=== PATIENT | male | born 1995 | race Caucasian/White ===

== ENCOUNTER 2016-09-11 20:17 | Emergency (ER) | payer MEDICAID, OTHER, SELFPAY ==
[2016-09-11] MEDS ORDERED: IBUPROFEN 600 MG TAB As Ordered ONE (21:46)
--- NOTE | 2016-09-11 23:44 | EDDOCDS ---
Nurse's Notes [facility] Name: Walter Hampton Age: 21 yrs Sex: Male : 1995 Arrival Date: 09/11/2016 Time: 20:17 Bed PR Private MD: Monty Leo C Diagnosis: Internal derangement of knee-LEFT Presentation: 09/11 20:27 Presenting complaint: Patient states: left knee pain after bad landing during [facility] basketball, feels like acl and meniscus tear on right side last year. Adult Sepsis Screening: The patient does not have new or worsening altered mentation. Patient's respiratory rate is less than 22. Systolic blood pressure is greater than 100. Patient has a qSOFA score of 0- Negative Sepsis Screen. Suicide/Homicide risk assessment- the patient denies having any suicidal and/or homicidal ideations and does not present with any other emotional, behavioral or mental health complaints. Status: The patient is a dependent. Transition of care: patient was not received from another setting of care. 20:27 Acuity: SUMIT Level 4 [facility] 20:27 Method Of Arrival: Walkin/Carried/Asstd [facility] Triage Assessment: 20:30 General: Appears in no apparent distress, comfortable, Behavior is appropriate for age, [facility] cooperative. Pain: Location: left knee Pain currently is 4 out of 10 on a pain scale. HIV screening NA for this visit Offered previously. Respiratory: Airway is patent Respiratory effort is even, unlabored, Respiratory pattern is regular, symmetrical. Derm: Skin is pink, warm & dry. Musculoskeletal: Range of motion limited in left knee. Historical: - Allergies: no known allergies; - Home Meds: 1. none - PMHx: none; - PSHx: knee, right acl repair; - Social history: Smoking status: Patient states was never smoker of tobacco. No barriers to communication noted. - Family history: Not pertinent. - : The pt / caregiver states he / she is not on anticoagulants. Home medication list is obtained from the patient. - Exposure Risk Screening:: None identified. Screenin:12 Screening information is obtained from the patient. Fall risk: No risks identified. cz Assistance ADL's: requires no assistance with activities of daily living. Abuse/DV Screen: The patient / caregiver reports he/she is: not in a situation that causes fear, pain or injury. Nutritional screening: No deficits noted. Advance Directives: Currently, there is no health care proxy. There is no active DNR order. There is no living will. There is no Power of Finance Clerk. Advance directive information has not previously been placed in an [facility] medical record. Further advance directive information is declined. home support is adequate. Assessment: 21:12 General: alert male with left lateral knee pain caused by playing basketball. Vital Signs: 20:19 BP 157 / 80; Pulse 113; Resp 20; Temp 99.6(O); Pulse Ox 96% on R/A; Weight 106.14 kg elp (R); Height 5 ft. 8 in. (172.72 cm) (R); Pain 4/10; 22:33 BP 142 / 68 RA Sitting (auto/reg); Pulse 99 MON; Resp 22 S; Temp 98.2(O); Pulse Ox 99% cln on R/A; Pain 4/10; 20:19 Body Mass Index 35.58 (106.14 kg, 172.72 cm) [facility] Vitals: 20:19 Log In Time: September 11, 2016 at 20:17. [facility] ED Course: 20:19 Patient visited by Josette Cabrera PCA. elp 20:19 Monty Leo is Private Physician. elp 20:19 Patient visited by Josette Cabrera PCA. elp 20:19 Patient moved to Waiting elp 20:20 Patient moved to Pre RCE elp 20:29 Triage Initiated [facility] 21:11 Patient moved to Triage 1 cz 21:12 The patient / caregiver is instructed regarding the plan of care and ED course. cz 21:33 [facility] ck7 21:33 Lei Ramos DO is Attending Physician. ck7 21:34 Patient visited by Roney Cartagena RPA-C. ck7 21:48 Patient moved to TR1 cz 21:57 [facility] Payment Agreement was scanned into [employer] and attached to record. ks16 22:24 Patient visited by Roney Cartagena RPA-C. ck7 22:25 Patient name changed from Walter\S\Jr\S\Memo\S\ to Walter\S\M\S\Memo. EDMS 22:29 Patient moved to PR2 / 26 cln 22:33 Patient visited by Geovanna Sow PCA. cln 23:15 Patient visited by Roney Cartagena RPA-C. ck7 23:36 [facility] is Referral Physician. ck7 23:43 No IV's were initiated during this patient's visit. No procedures done that require cz assistance. Crutch training done. Knee immobilizer applied on left knee. Patient with positive distal sensation and brisk distal capillary refill after application. Administered Medications: 21:48 Drug: Ibuprofen 600 mg [ibuprofen 600 mg tablet (1 tabs)] Route: PO; cz Order Results: There are currently no results for this order. Outcome: 23:36 Discharge ordered by Provider. ck7 23:42 Discharge Assessment: Patient awake, alert and oriented x 3. No cognitive and/or cz functional deficits noted. Patient verbalized understanding of disposition instructions. patient administered narcotics - no. The following High Risk Discharge criteria are identified: None. Discharged to home ambulatory, with crutches, with family. Condition: stable. Discharge instructions given to patient, Instructed on discharge instructions, follow up and referral plans. medication usage, Demonstrated understanding of instructions, crutch walking, medications, Pt was receptive of discharge instructions/ teaching. Prescriptions given X 2. No special radiology studies were completed. Property :Personal belongings accompany Pt. 23:43 Patient left the ED. cz Signatures: Dispatcher [employer] EDNV Aaron Gonzalez RN RN cz Hafner, Jane, RN RN [facility] Roney Cartagena RPA-C RPA-Cck7 Josette Cabrera, HYDRAULIC DREDGE OPERATOR HYDRAULIC DREDGE OPERATOR zahrap Divine Castano, Reg Reg ks16 Geovanna Sow, HYDRAULIC DREDGE OPERATOR HYDRAULIC DREDGE OPERATOR cln MTDD
--- NOTE | 2016-09-11 23:44 | EDDOCDS ---
Physician Documentation [facility] Name: Walter Hampton Age: 21 yrs Sex: Male : 1995 Arrival Date: 09/11/2016 Time: 20:17 Bed PR Private MD: Monty Leo C Disposition: 09/11/16 23:36 Discharged to Home/Self Care. Impression: Internal derangement of knee - LEFT. - Condition is Stable. - Discharge Instructions: Knee Pain. - Prescriptions for Ibuprofen 600 mg Oral Tablet - take 1 tablet by ORAL route every 6 hours As needed take with food; 30 tablet. - Medication Reconciliation, Local Pharmacy Hours form. - Follow up: [facility]; When: 2 - 3 days; Reason: Recheck today's complaints, Continuance of care. - Problem is new. - Symptoms have improved. - Notes: USE IMMOBILIZER, CRUTCHES\E\, MOTRIN AND ICE, FOLLOW UP WITH [facility] Historical: - Allergies: no known allergies; - Home Meds: 1. none - PMHx: none; - PSHx: knee, right acl repair; - Social history: Smoking status: Patient states was never smoker of tobacco. No barriers to communication noted. - Family history: Not pertinent. - : The pt / caregiver states he / she is not on anticoagulants. Home medication list is obtained from the patient. - Exposure Risk Screening:: None identified. Vital Signs: 09/11 20:19 BP 157 / 80; Pulse 113; Resp 20; Temp 99.6(O); Pulse Ox 96% on R/A; Weight 106.14 kg / elp 234 lbs (R); Height 5 ft. 8 in. (172.72 cm) (R); Pain 4/10; 22:33 BP 142 / 68 RA Sitting (auto/reg); Pulse 99 MON; Resp 22 S; Temp 98.2(O); Pulse Ox 99% cln on R/A; Pain 4/10; 20:19 Body Mass Index 35.58 (106.14 kg, 172.72 cm) elp Procedures: 22:29 Fracture care/splinting: Splint applied to left leg using knee immobilizer, applied by ck7 nurse. Examined by me, post splint application: neurovascular intact, 2+ distal pulses palpable, brisk capillary refill noted, Patient tolerated well. MDM: 21:45 Ibuprofen 600 mg PO once ordered. ck7 21:46 Knee, Complete Ordered. EDMS 21:57 Financial registration complete. ks16 21:57 [facility] Payment Agreement was scanned into [employer] and attached to record. ks16 22:29 Knee Immobilizer ordered. ck7 22:29 Crutches ordered. ck7 Administered Medications: 21:48 Drug: Ibuprofen 600 mg [ibuprofen 600 mg tablet (1 tabs)] Route: PO; cz Signatures: Dispatcher [employer] EDMS Aaron Gonzalez, ASHELY RN Queenie Pritchett RN RN bonnie Roney Cartagena, RPA-C RPA-Cck7 Divine Castano, Reg Reg ks16 The chart was reviewed and I authenticate all verbal orders and agree with the evaluation and treatment provided.Attachments: 21:57 [facility] Payment Agreement ks16 MTDD
--- NOTE | 2016-09-12 08:30 | REP ---
Left knee series: Five views. History: Deformity and swelling. Comparison left knee radiographs are from August 06, 2014. Findings: Five views of the left knee demonstrate normal joint spaces. There is no evidence of fracture, subluxation or joint effusion. Alignment is normal. Impression: Negative left knee series. Signed by Olegario Mckeon MD 09/12/2016 09:50 A
--- NOTE | 2016-09-14 00:44 | EDDOCDS ---
Physician Documentation [facility] Name: Walter Hampton Age: 21 yrs Sex: Male : 1995 Arrival Date: 09/11/2016 Time: 20:17 Bed PR Private MD: Monty Leo C Disposition: 09/11/16 23:36 Discharged to Home/Self Care. Impression: Internal derangement of knee - LEFT. - Condition is Stable. - Discharge Instructions: Knee Pain. - Prescriptions for Ibuprofen 600 mg Oral Tablet - take 1 tablet by ORAL route every 6 hours As needed take with food; 30 tablet. - Medication Reconciliation, Local Pharmacy Hours form. - Follow up: [facility]; When: 2 - 3 days; Reason: Recheck today's complaints, Continuance of care. - Problem is new. - Symptoms have improved. - Notes: USE IMMOBILIZER, CRUTCHES\E\, MOTRIN AND ICE, FOLLOW UP WITH [facility] Historical: - Allergies: no known allergies; - Home Meds: 1. none - PMHx: none; - PSHx: knee, right acl repair; - Social history: Smoking status: Patient states was never smoker of tobacco. No barriers to communication noted. - Family history: Not pertinent. - : The pt / caregiver states he / she is not on anticoagulants. Home medication list is obtained from the patient. - Exposure Risk Screening:: None identified. Vital Signs: 09/11 20:19 BP 157 / 80; Pulse 113; Resp 20; Temp 99.6(O); Pulse Ox 96% on R/A; Weight 106.14 kg / elp 234 lbs (R); Height 5 ft. 8 in. (172.72 cm) (R); Pain 4/10; 22:33 BP 142 / 68 RA Sitting (auto/reg); Pulse 99 MON; Resp 22 S; Temp 98.2(O); Pulse Ox 99% cln on R/A; Pain 4/10; 20:19 Body Mass Index 35.58 (106.14 kg, 172.72 cm) elp Procedures: 22:29 Fracture care/splinting: Splint applied to left leg using knee immobilizer, applied by ck7 nurse. Examined by me, post splint application: neurovascular intact, 2+ distal pulses palpable, brisk capillary refill noted, Patient tolerated well. MDM: 21:45 Ibuprofen 600 mg PO once ordered. ck7 21:46 Knee, Complete Ordered. EDMS 21:57 Financial registration complete. ks16 :57 [facility] Payment Agreement was scanned into [employer] and attached to record. ks16 22:29 Knee Immobilizer ordered. ck7 22:29 Crutches ordered. ck7 09/12 09:31 T-Sheet-- Draft Copy was scanned into [employer] and attached to record. gb Administered Medications: 09/11 21:48 Drug: Ibuprofen 600 mg [ibuprofen 600 mg tablet (1 tabs)] Route: PO; cz Signatures: Dispatcher [employer] EDMS Aaron Gonzalez RN RN cz Barnhardt, Gloria, Reg Reg gb Queenie Xavier RN RN Roney Voss, RPA-C RPA-Cck7 Divine Castano, Reg Reg ks16 The chart was reviewed and I authenticate all verbal orders and agree with the evaluation and treatment provided.Attachments: :57 [facility] Payment Agreement 09/12 09:31 T-Sheet-- Draft Copy gb Chart Complete MTDD
--- NOTE | 2016-09-14 00:44 | EDDOCDS ---
Nurse's Notes [facility] Name: Walter Hampton Age: 21 yrs Sex: Male : 1995 Arrival Date: 09/11/2016 Time: 20:17 Bed PR Private MD: Monty Leo C Diagnosis: Internal derangement of knee-LEFT Presentation: 09/11 20:27 Presenting complaint: Patient states: left knee pain after bad landing during [facility] basketball, feels like acl and meniscus tear on right side last year. Adult Sepsis Screening: The patient does not have new or worsening altered mentation. Patient's respiratory rate is less than 22. Systolic blood pressure is greater than 100. Patient has a qSOFA score of 0- Negative Sepsis Screen. Suicide/Homicide risk assessment- the patient denies having any suicidal and/or homicidal ideations and does not present with any other emotional, behavioral or mental health complaints. Status: The patient is a dependent. Transition of care: patient was not received from another setting of care. 20:27 Acuity: SUMIT Level 4 [facility] 20:27 Method Of Arrival: Walkin/Carried/Asstd [facility] Triage Assessment: 20:30 General: Appears in no apparent distress, comfortable, Behavior is appropriate for age, [facility] cooperative. Pain: Location: left knee Pain currently is 4 out of 10 on a pain scale. HIV screening NA for this visit Offered previously. Respiratory: Airway is patent Respiratory effort is even, unlabored, Respiratory pattern is regular, symmetrical. Derm: Skin is pink, warm & dry. Musculoskeletal: Range of motion limited in left knee. Historical: - Allergies: no known allergies; - Home Meds: 1. none - PMHx: none; - PSHx: knee, right acl repair; - Social history: Smoking status: Patient states was never smoker of tobacco. No barriers to communication noted. - Family history: Not pertinent. - : The pt / caregiver states he / she is not on anticoagulants. Home medication list is obtained from the patient. - Exposure Risk Screening:: None identified. Screenin:12 Screening information is obtained from the patient. Fall risk: No risks identified. cz Assistance ADL's: requires no assistance with activities of daily living. Abuse/DV Screen: The patient / caregiver reports he/she is: not in a situation that causes fear, pain or injury. Nutritional screening: No deficits noted. Advance Directives: Currently, there is no health care proxy. There is no active DNR order. There is no living will. There is no Power of Lsat Instructor. Advance directive information has not previously been placed in an [facility] medical record. Further advance directive information is declined. home support is adequate. Assessment: 21:12 General: alert male with left lateral knee pain caused by playing basketball. Vital Signs: 20:19 BP 157 / 80; Pulse 113; Resp 20; Temp 99.6(O); Pulse Ox 96% on R/A; Weight 106.14 kg elp (R); Height 5 ft. 8 in. (172.72 cm) (R); Pain 4/10; 22:33 BP 142 / 68 RA Sitting (auto/reg); Pulse 99 MON; Resp 22 S; Temp 98.2(O); Pulse Ox 99% cln on R/A; Pain 4/10; 20:19 Body Mass Index 35.58 (106.14 kg, 172.72 cm) [facility] Vitals: 20:19 Log In Time: September 11, 2016 at 20:17. [facility] ED Course: 20:19 Patient visited by Josette Cabrera PCA. elp 20:19 Monty Leo is Private Physician. elp 20:19 Patient visited by Josette Cabrera PCA. elp 20:19 Patient moved to Waiting elp 20:20 Patient moved to Pre RCE elp 20:29 Triage Initiated [facility] 21:11 Patient moved to Triage 1 cz 21:12 The patient / caregiver is instructed regarding the plan of care and ED course. cz 21:33 [facility] ck[facility] 21:33 Lei Ramos DO is Attending Physician. ck7 21:34 Patient visited by Roney Cartagena RPA-C. ck7 21:48 Patient moved to TR1 cz 21:57 [facility] Payment Agreement was scanned into [employer] and attached to record. ks16 22:24 Patient visited by Roney Cartagena RPA-C. ck7 22:25 Patient name changed from Walter\S\Jr\S\Memo\S\ to Walter\S\M\S\Memo. EDMS 22:29 Patient moved to cln 22:33 Patient visited by Geovanna Sow PCA. cln 23:15 Patient visited by Roney Cartagena RPA-C. ck7 23:36 [facility] is Referral Physician. ck7 23:43 No IV's were initiated during this patient's visit. No procedures done that require cz assistance. Crutch training done. Knee immobilizer applied on left knee. Patient with positive distal sensation and brisk distal capillary refill after application. 09/12 08:38 Knee, Complete Returned. EDMS 09:31 T-Sheet-- Draft Copy was scanned into [employer] and attached to record. gb Administered Medications: 09/11 21:48 Drug: Ibuprofen 600 mg [ibuprofen 600 mg tablet (1 tabs)] Route: PO; cz Order Results: Radiology Order: Knee, Complete Test: Knee, Complete REASON FOR EXAMINATION: Deformity/Swelling; Left knee series: Five views.; ; History: Deformity and swelling.; ; Comparison left knee radiographs are from August 06, 2014.; ; Findings: Five views of the left knee demonstrate normal joint spaces. There is; no evidence of fracture, subluxation or joint effusion. Alignment is normal.; ; Impression:; ; Negative left knee series.; ; ; Signed by; Olegario Mckeon MD 09/12/2016 09:50 A; Outcome: 23:36 Discharge ordered by Provider. ck7 23:42 Discharge Assessment: Patient awake, alert and oriented x 3. No cognitive and/or cz functional deficits noted. Patient verbalized understanding of disposition instructions. patient administered narcotics - no. The following High Risk Discharge criteria are identified: None. Discharged to home ambulatory, with crutches, with family. Condition: stable. Discharge instructions given to patient, Instructed on discharge instructions, follow up and referral plans. medication usage, Demonstrated understanding of instructions, crutch walking, medications, Pt was receptive of discharge instructions/ teaching. Prescriptions given X 2. No special radiology studies were completed. Property :Personal belongings accompany Pt. 23:43 Patient left the ED. cz Signatures: [facility]patcher [facility] Aaron Gonzalez RN RN cz Barnhardt, Gloria, Reg Reg Queenie Art RN RN [facility] Roney Cartagena RPA-C RPA-Duncan Cabrera, Josette, TILE MASON TILE MASON elp Divine Castano, Reg Reg ks16 Magi, Crystal, TILE MASON TILE MASON cln Chart Complete MTDD
--- NOTE | 2016-09-14 00:44 | EDDOCDS ---
Physician Documentation [facility] Name: Walter Hampton Age: 21 yrs Sex: Male : 1995 Arrival Date: 09/11/2016 Time: 20:17 Bed PR Private MD: Monty Leo C Disposition: 09/11/16 23:36 Discharged to Home/Self Care. Impression: Internal derangement of knee - LEFT. - Condition is Stable. - Discharge Instructions: Knee Pain. - Prescriptions for Ibuprofen 600 mg Oral Tablet - take 1 tablet by ORAL route every 6 hours As needed take with food; 30 tablet. - Medication Reconciliation, Local Pharmacy Hours form. - Follow up: [facility]; When: 2 - 3 days; Reason: Recheck today's complaints, Continuance of care. - Problem is new. - Symptoms have improved. - Notes: USE IMMOBILIZER, CRUTCHES\E\, MOTRIN AND ICE, FOLLOW UP WITH [facility] Historical: - Allergies: no known allergies; - Home Meds: 1. none - PMHx: none; - PSHx: knee, right acl repair; - Social history: Smoking status: Patient states was never smoker of tobacco. No barriers to communication noted. - Family history: Not pertinent. - : The pt / caregiver states he / she is not on anticoagulants. Home medication list is obtained from the patient. - Exposure Risk Screening:: None identified. Vital Signs: 09/11 20:19 BP 157 / 80; Pulse 113; Resp 20; Temp 99.6(O); Pulse Ox 96% on R/A; Weight 106.14 kg / elp 234 lbs (R); Height 5 ft. 8 in. (172.72 cm) (R); Pain 4/10; 22:33 BP 142 / 68 RA Sitting (auto/reg); Pulse 99 MON; Resp 22 S; Temp 98.2(O); Pulse Ox 99% cln on R/A; Pain 4/10; 20:19 Body Mass Index 35.58 (106.14 kg, 172.72 cm) elp Procedures: 22:29 Fracture care/splinting: Splint applied to left leg using knee immobilizer, applied by ck7 nurse. Examined by me, post splint application: neurovascular intact, 2+ distal pulses palpable, brisk capillary refill noted, Patient tolerated well. MDM: 21:45 Ibuprofen 600 mg PO once ordered. ck7 21:46 Knee, Complete Ordered. EDMS 21:57 Financial registration complete. ks16 :57 [facility] Payment Agreement was scanned into [employer] and attached to record. ks16 22:29 Knee Immobilizer ordered. ck7 22:29 Crutches ordered. ck7 09/12 09:31 T-Sheet-- Draft Copy was scanned into [employer] and attached to record. gb Administered Medications: 09/11 21:48 Drug: Ibuprofen 600 mg [ibuprofen 600 mg tablet (1 tabs)] Route: PO; cz Signatures: Dispatcher [employer] EDMS Aaron Gonzalez RN RN cz Barnhardt, Gloria, Reg Reg gb Queenie Xavier RN RN Roney Voss, RPA-C RPA-Cck7 Divine Castano, Reg Reg ks16 The chart was reviewed and I authenticate all verbal orders and agree with the evaluation and treatment provided.Attachments: :57 [facility] Payment Agreement 09/12 09:31 T-Sheet-- Draft Copy gb Chart Complete MTDD
== END 2016-09-11 23:43 | disposition home or self-care (01) ==
LOC: M ED 20:17
DX: M23.92 Unspecified internal derangement of left knee (principal)

== ENCOUNTER 2016-11-22 15:40 | Emergency (ER) | payer OTHER, SELFPAY ==
[~2016-11-22] VITALS: Ht 175.3 cm; Wt 108.9 kg
[2016-11-22] MEDS ORDERED: IBUP600T26 PO (15:51)
[2016-11-22] MEDS ORDERED: ASPI81TA85 PO (15:51)
[2016-11-22] MEDS ORDERED: OXYC1TAB23 PO (15:51)
[2016-11-22 18:38] LABS: BASO % 0.4 % (0.0-1.0); EOS # 0.2 K/mm3 (0.0-0.50); LARGE UNSTAINED CELL # 0.1 K/mm3 (0.0-0.4); LARGE UNSTAINED CELL % 1.3 % (0.0-4.0); LYMPH # 1.7 K/mm3 (1.5-6.5); LYMPH % 23.3 % (24.0-44.0); MEAN CORPUSCULAR HEMOGLOBIN 30.4 pg (27.0-33.0); MEAN CORPUSCULAR HGB CONC 33.2 g/dl (32.0-36.5); MEAN CORPUSCULAR VOLUME 91.5 fl (80.0-96.0); MONO # 0.4 K/mm3 (0.0-0.8); MONO % 5.2 % (0.0-5.0); NEUTROPHILS # 4.8 K/mm3 (1.8-7.7); NEUTROPHILS % 66.8 % (36.0-66.0); PLATELET COUNT, AUTOMATED 218 k/mm3 (150-450); RED CELL DISTRIBUTION WIDTH 12.5 % (11.5-14.5); WHITE BLOOD COUNT 7.1 K/mm3 (4.0-10.0)
[2016-11-22 19:00] LABS: ERYTHROCYTE SEDIMENTATION RATE 5 mm/hr (0-15)
[2016-11-22] MEDS ORDERED: TYLE325T5 PO (19:36)
[2016-11-22 19:48] VITALS: BP 145/63
--- NOTE | 2016-11-23 08:12 | REP ---
LEFT KNEE, COMPLETE: 11/22/2016. Clinical history: Left knee pain. 1 week status post knee surgery. Comparison 09/11/2016. Findings: There is a metallic anchor over the lateral aspect distal femoral metaphysis at the lateral femoral condyle. Medial and lateral compartments show no joint space narrowing. There is no patellofemoral joint space narrowing or patellar subluxation. Suprapatellar effusion suspected on the lateral view. There is no fracture, acute avulsion or other significant finding. Impression: 1. Small suprapatellar effusion with some soft tissue swelling about the knee and hardware adjacent to the lateral femoral condyle at the metaphysis. No loose body or acute bony finding. Signed by Justice Gorman MD 11/23/2016 08:47 A
== END 2016-11-22 20:14 | disposition home or self-care (01) ==
LOC: M ED 17:01
DX: M25.462 Effusion, left knee (principal); Z98.890 Other specified postprocedural states; Z79.82 Long term (current) use of aspirin

== ENCOUNTER 2016-12-25 21:56 | Emergency (ER) | payer OTHER ==
[~2016-12-25] VITALS: Ht 172.7 cm; Wt 108.9 kg
[~2016-12-25 21:56] MED LIST: ASPI81TA85 PO; IBUP600T26 PO; OXYC1TAB23 PO; TYLE325T5 PO
[2016-12-25 23:16] VITALS: BP 149/70
== END 2016-12-25 23:48 | disposition home or self-care (01) ==
LOC: EDBD 21:56 → M ED 22:24
DX: R04.0 Epistaxis (principal)

== ENCOUNTER 2017-10-05 06:08 | Day surgery (SDC) | payer OTHER ==
[2017-10-05] MEDS ORDERED: MIDAZOLAM INJ 2 MG/2 ML VIAL (J2250) As Ordered ×2 (06:54→07:17)
[2017-10-05] MEDS ORDERED: fentaNYL 100 MCG/2 ML INJECTION (J3010) As Ordered (06:54)
[2017-10-05] MEDS ORDERED: ROCURONIUM BROMIDE 50 MG/5 ML VIAL As Ordered (07:14)
[2017-10-05] MEDS ORDERED: LIDOCAINE 2% INJ 100 MG/5 ML SYRINGE As Ordered (07:14)
[2017-10-05] MEDS ORDERED: PROPOFOL 200 MG/20 ML VIAL As Ordered (07:14)
[2017-10-05] MEDS ORDERED: KETOROLAC 60 MG/2 ML VIAL (J1885) As Ordered (07:14)
[2017-10-05] MEDS ORDERED: ONDANSETRON 4MG/2ML VIAL (J2405) As Ordered (07:14)
[2017-10-05] MEDS ORDERED: METOCLOPRAMIDE INJ 10MG/2ML VIAL (J2765) As Ordered (07:14)
[2017-10-05] MEDS ORDERED: fentaNYL 250 MCG/5 ML INJECTION (J3010) As Ordered (07:16)
[2017-10-05] MEDS: LR 1,000 ML IV (07:22)
[2017-10-05] MEDS ORDERED: LIDOCAINE 2% INJ 100 MG/5 ML SDV (FOR ANES.) As Ordered (07:22)
[2017-10-05] MEDS: ROPIvacaine 0.5% 30 ML INJECTION (J2795 PER 1MG) As Ordered (09:17)
[2017-10-05] MEDS: ceFAZolin 1GM INJ (J0690 PER 500MG) As Ordered (09:17)
[2017-10-05] MEDS ORDERED: GLYCOPYRROLATE INJ 0.2 MG/ML 2 ML VIAL As Ordered ×2 (09:24)
[2017-10-05] MEDS ORDERED: NEOSTIGMINE 10 MG/10 ML VIAL (J2710) As Ordered (09:24)
[2017-10-05] MEDS ORDERED: DESFLURANE 240 ML INHALANT As Ordered (09:53)
[2017-10-05] MEDS ORDERED: ONDANSETRON 4MG/2ML VIAL (J2405) IV (10:15)
[2017-10-05] MEDS ORDERED: MORPHINE 4 MG/ML 1ML VIAL (J2270) IV (10:15)
[2017-10-05] MEDS ORDERED: fentaNYL 100 MCG/2 ML INJECTION (J3010) IV (10:15)
[2017-10-05] MEDS ORDERED: LR 1,000 ML IV (10:15)
[2017-10-05] MEDS ORDERED: NORCO, ANEXSIA 5/325MG TABLET (HYDROcodone/ACETAMINOPHEN) PO (10:15)
[2017-10-05] MEDS: NORCO, ANEXSIA 5/325MG TABLET (HYDROcodone/ACETAMINOPHEN) PO (11:41)
== END 2017-10-05 12:10 | disposition home or self-care (01) ==
LOC: M SDC 06:08
DX: S83.512A Sprain of anterior cruciate ligament of left knee, initial encounter (principal); X58.XXXA Exposure to other specified factors, initial encounter; Y93.89 Activity, other specified; Y92.89 Other specified places as the place of occurrence of the external cause; Y99.8 Other external cause status
CPT/HCPCS: 27428